=== PATIENT | male | born 1945 | race Caucasian/White ===

== ENCOUNTER 2022-01-08 06:10 | Day surgery (SDC) | payer MEDICARE, BC ==
[~2022-01-08 06:10] MED LIST: Lactated Ringers 1,000 ML IV SCH; Lidocaine 1%/Sod Bicarbonate in NS 8.4% 1 ML Syringe IDERM PRN; Sodium Chloride 0.9% 10 ML Syringe FLUSH PRN; Sodium Chloride 0.9% 10 ML Syringe FLUSH SCH
[2022-01-08] MEDS ORDERED: Bupivacaine 0.25% 10 ML SDV ONE (06:15)
[2022-01-08] MEDS ORDERED: Lidocaine 1% 10 ML MDV ONE (06:15)
[2022-01-08] MEDS ORDERED: Propofol 200 MG/20 ML SDV ONE (06:32)
[2022-01-08] MEDS ORDERED: Lidocaine 1% 5 ML VIAL ONE (06:33)
[2022-01-08] MEDS ORDERED: fentaNYL 100 MCG/2 ML SDV ONE (06:33)
[2022-01-08] MEDS ORDERED: ceFAZolin 2 GM Vial ONE (06:34)
== END 2022-01-08 08:30 | disposition home or self-care (01) ==
LOC: JD.SDS 06:10
PROVIDERS: ATTEND Orthopaedic Surgery
DX: G56.12 Other lesions of median nerve, left upper limb (principal); G56.02 Carpal tunnel syndrome, left upper limb; I10 Essential (primary) hypertension; E78.00 Pure hypercholesterolemia, unspecified; I48.91 Unspecified atrial fibrillation; E11.9 Type 2 diabetes mellitus without complications; K21.9 Gastro-esophageal reflux disease without esophagitis; I25.10 Atherosclerotic heart disease of native coronary artery without angina pectoris; Z79.84 Long term (current) use of oral hypoglycemic drugs; Z79.4 Long term (current) use of insulin; Z79.01 Long term (current) use of anticoagulants; Z79.899 Other long term (current) drug therapy; Z98.890 Other specified postprocedural states; Z87.891 Personal history of nicotine dependence
CPT/HCPCS: 64721; J0690; J2704; J3010; J3490; J7120; 01810

== ENCOUNTER 2024-08-15 09:26 | Day surgery (SDC) | payer MEDICARE, BC ==
[2024-08-15] MEDS ORDERED: Propofol 200 MG/20 ML SDV ONE (10:03)
[2024-08-15] MEDS ORDERED: ceFAZolin 2 GM Vial ONE (10:03)
[2024-08-15] MEDS ORDERED: Sodium Chloride 0.9% 50 ML SDV ONE (10:09)
[2024-08-15] MEDS ORDERED: Lactated Ringers 1,000 ML IV ONE (11:00)
[2024-08-15] MEDS ORDERED: Phenylephrine 1% 10 MG/ML SDV ONE (11:00)
[2024-08-15] MEDS ORDERED: Rocuronium 50 MG/5 ML Vial ONE (11:22)
[2024-08-15] MEDS ORDERED: fentaNYL 100 MCG/2 ML SDV ONE (11:28)
[2024-08-15] MEDS ORDERED: Dexamethasone 4 MG/ML 5 ML MDV ONE (11:29)
[2024-08-15] MEDS ORDERED: Ondansetron 4 MG/2 ML SDV ONE (11:29)
[2024-08-15] MEDS ORDERED: Sugammadex Sodium 200 MG/2 ML VIAL IV ONE (11:30)
[2024-08-15] MEDS ORDERED: fentaNYL 100 MCG/2 ML SDV IVPUSH PRN (12:05)
[2024-08-15] MEDS: Bupivacaine 0.25% 10 ML SDV ONE (12:09)
== END 2024-08-15 14:00 | disposition home or self-care (01) ==
LOC: JD.SDS 09:26
PROVIDERS: ATTEND Orthopaedic Surgery
DX: M70.22 Olecranon bursitis, left elbow (principal); E11.9 Type 2 diabetes mellitus without complications; I48.91 Unspecified atrial fibrillation; I25.10 Atherosclerotic heart disease of native coronary artery without angina pectoris; I10 Essential (primary) hypertension; Z79.4 Long term (current) use of insulin; Z79.01 Long term (current) use of anticoagulants; Z79.84 Long term (current) use of oral hypoglycemic drugs; Z87.891 Personal history of nicotine dependence; Z79.899 Other long term (current) drug therapy
CPT/HCPCS: 24105; 82947; J0665; J0690; J1100; J2371; J2405; J2704; J3010; J7120; 01710; 99100; J3490